=== PATIENT | female | born 1995 | race Caucasian/White ===

== ENCOUNTER 2017-08-03 11:35 | Emergency (ER) | payer OTHER ==
[~2017-08-03] VITALS: Ht 177.8 cm; Wt 70.0 kg
[2017-08-03] MEDS ORDERED: ORTHO TRI-CY PO (11:43)
[2017-08-03] MEDS ORDERED: MOTRIN800 MG PO (12:17)
[2017-08-03 13:09] VITALS: BP 123/69
== END 2017-08-03 13:00 | disposition home or self-care (01) | DRG 605 ==
LOC: ED 11:35
DX: S20.212A Contusion of left front wall of thorax, initial encounter (principal); S40.022A Contusion of left upper arm, initial encounter; S20.211A Contusion of right front wall of thorax, initial encounter; V53.5XXA Driver of pick-up truck or van injured in collision with car, pick-up truck or van in traffic accident, initial encounter; Y92.488 Other paved roadways as the place of occurrence of the external cause; W22.11XA Striking against or struck by driver side automobile airbag, initial encounter; Y93.I9 Activity, other involving external motion